=== PATIENT | female | born 1945 | race Caucasian/White ===

== ENCOUNTER 2016-04-19 06:57 | Day surgery (SDC) | payer OTHER ==
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
[2016-04-19] MEDS ORDERED: VERSED ONE (07:35)
[2016-04-19] MEDS ORDERED: FENTANYL ONE (07:35)
[2016-04-19] MEDS ORDERED: DIPRIVAN 1% ONE ×2 (07:35→11:32)
[2016-04-19] MEDS ORDERED: DUONEB (A & A) INH ONE (07:45)
[2016-04-19] MEDS ORDERED: PEPCID IV ONE (08:15)
[2016-04-19] MEDS ORDERED: BICITRA PO ONE (08:15)
[2016-04-19] MEDS ORDERED: REGLAN IV ONE (08:15)
[2016-04-19] MEDS ORDERED: SODIUM CHLORIDE 0.9% INJ ONE (08:15)
--- NOTE | 2016-04-19 09:20 | EKG Report ---
Test Performed on : 04/19/2016 08:02:07 AM Test Reason : SOB R/O CAD Blood Pressure : / mmHG Vent. Rate : 078 BPM Atrial Rate : 078 BPM P-R Int : 144 ms QRS Dur : 068 ms QT Int : 384 ms P-R-T Axes : 054 -04 013 degrees QTc Int : 437 ms Normal sinus rhythm. Normal ECG No previous ECGs available Unconfirmed Result
[2016-04-19] MEDS ORDERED: SENSORCAINE 0.25%/EPI 1:200,000 ONE (10:01)
[2016-04-19] MEDS ORDERED: LR 1,000 ML ONE (10:21)
[2016-04-19] MEDS ORDERED: NORCO-5 PO PRN (11:06)
[2016-04-19] MEDS ORDERED: PATIENT'S OWN MED INH PRN (11:06)
[2016-04-19] MEDS ORDERED: VENTOLIN HFA INH PRN (11:06)
[2016-04-19] MEDS ORDERED: CLARITIN PO PRN (11:06)
[2016-04-19] MEDS ORDERED: TYLENOL PO PRN (11:06)
[2016-04-19 13:17] VITALS: BP 145/69
[2016-04-20] MEDS ORDERED: MYRBETRIQ E.R. PO SCH (09:00)
--- NOTE | 2016-05-03 22:15 | OPERATIVE NOTE ---
PROCEDURE DATE: 04/19/2016 PREOPERATIVE DIAGNOSIS: Recalcitrant detrusor instability. POSTOPERATIVE DIAGNOSIS: Recalcitrant detrusor instability. PROCEDURE: Temporary InterStim lead placement. SURGEON: Guilherme Granados M.D. ANESTHESIA: MAC. ESTIMATED BLOOD LOSS: 10 mL. OPERATIVE FINDINGS: The patient was found to have excellent results on the right-hand side with very rapid response to stimulation with both wayne and toe. However on the left-hand side at the similar site when we placed the second needle we were unable to obtain any type of response whatsoever and so I am not certain what is happening here. We placed it at several other sites on the left-hand side and were never really able to obtain a response. OPERATIVE PROCEDURE: Patient taken to the operating room and placed in the supine position. After adequate general anesthesia was obtained, she was then placed in the prone position. At this time her back and lower buttock region was prepped and draped in the usual fashion. Using a marking pen we initially noted our landmarks and using a C-arm we started with some local anesthesia we injected our initial site and starting on the right-hand side we placed the needle into the S3 foramen as was confirmed by testing as well as C-arm placement both in the AP and lateral position. Testing showed good toe response as well as good wayne at very-very low voltages. In fact it was very uncomfortable for the patient during the procedure. So at this point we stopped and went to the left-hand side. Very similar fashion, again went in the exact same spot but on this side we had no response even with deep passage of the needle as well as superficial passage. We could not obtain a response. We did leave needles in both sides and these were taped down. After completion of doing this and testing the leads the patient had all the leads taped. She was awakened from her MAC anesthesia, taken out of the prone position and taken to the recovery room with vital signs stable.
== END 2016-04-19 13:40 | disposition home or self-care (01) ==
LOC: P.OR 06:57 → P.WC 06:58 → P.OR 13:40
PROVIDERS: ATTEND Obstetrics & Gynecology
DX: N39.41 Urge incontinence (principal); R15.9 Full incontinence of feces; I25.10 Atherosclerotic heart disease of native coronary artery without angina pectoris; J45.909 Unspecified asthma, uncomplicated
CPT/HCPCS: 36415; 76000; 85025; 93005; 94640; C1897; J2250; J2765; J3010; J7120; S0028